=== PATIENT | male | born 1985 | race Two or more races ===

== ENCOUNTER 2022-10-28 19:04 | Emergency (ER) | payer OTHER ==
[~2022-10-28] VITALS: Ht 180.3 cm; Wt 87.0 kg
[2022-10-28 19:33] VITALS: BP 132/82
== END 2022-10-29 03:02 | disposition left against medical advice (07) ==
LOC: ER 19:04
DX: J02.9 Acute pharyngitis, unspecified (principal); R13.10 Dysphagia, unspecified; R05.9 Cough, unspecified; Z53.21 Procedure and treatment not carried out due to patient leaving prior to being seen by health care provider
CPT/HCPCS: 87070; 87880